=== PATIENT | female | born 1935 | race Caucasian/White ===

== ENCOUNTER → 2018-02-03 10:15 | Outpatient (CLI) | payer OTHER, MEDICARE, SELFPAY ==
--- NOTE | 2018-02-03 10:56 | EKG12_ITS ---
Test Reason : PRE-OP Blood Pressure : / mmHG Vent. Rate : 066 BPM Atrial Rate : 066 BPM P-R Int : 202 ms QRS Dur : 134 ms QT Int : 450 ms P-R-T Axes : 061 -51 143 degrees QTc Int : 471 ms Normal sinus rhythm Possible Left atrial enlargement Left axis deviation Left bundle branch block Abnormal ECG Confirmed by LUIS E PATTERSON, LORRIE ([id number]), senior technical editor MARLY WYATT ([id number]) on 02/04/2018 12:54:00 PM Referred By: Sera Iqbal Confirmed By:LORRIE KIMBROUGH MD
[2018-02-03 11:45] LABS: Absolute Lymphocyte Count 1.29 X10^3/ul (0.83-4.51); Absolute Neutrophil Count 3.2 X10^3/uL (2.0-7.7); Basophil# 0.04 X10^3/uL; Basophil% 0.7 % (0-1); Eosinophil# 0.22 X10^3/uL; Hematocrit 42.2 % (37-47); Hemoglobin 13.8 g/dl (12.0-15.0); Lymphocyte # 1.29 X10^3/ul (4.0); Lymphocyte % 23.3 % (19-41); Mean Corp Hgb Conc 32.7 g/gl (32-36); Mean Corpuscular Hgb 30.8 pg (27.0-32.0); Mean Corpuscular Volume 94.2 fL (81-99); Mean Platelet Vol. 11.3 fl (6.2-12.0); Monocyte# 0.73 X10^3/uL; Monocyte% 13.2 % (0-10); Neutrophil # 3.24 X10^3/uL (2.7-7.7); Neutrophil % 58.6 % (47-70); Platelet Count 219 K/mm3 (150-450); RBC Distribution Width CV 14.9 % (11.6-14.6); RBC Distribution Width SD 50.2 fl (35.1-43.9); Red Blood Count 4.48 M/mm3 (4.2-5.4); White Blood Count 5.5 K/mm3 (4.4-11.0)
[2018-02-03 11:46] LABS: POSITIVE COUNT NO; POSITIVE DIFFERENTIAL NO; POSITIVE MORPHOLOGY NO
[2018-02-03 12:10] LABS: AST(SGOT) 22 U/L (15-37); Alanine Aminotransfer ALT/SGPT 26 U/L (13-56); Albumin, Serum 3.7 g/dL (3.2-5.0); Alkaline Phosphatase 63 U/L (45-117); Anion Gap 7 (5-15); BUN 21 mg/dL (7-18); BUN/Creat Ratio 25.5 RATIO (10-20); Bilirubin, Direct 0.08 mg/dL (0.00-0.30); Chloride 106 mmol/L (98-107); Cholesterol 156 mg/dL (200); Creatinine, Serum 0.82 mg/dL (0.55-1.02); EST Glomerular Filtration Rate 71 mL/min (>60); Est Glom Filt Rate - Afr Amer 85 mL/min (>60); Globulin 3.3 g/dL (2.2-4.2); Glucose 82 mg/dL (74-106); High Density Lipoprotein 60 mg/dL; Potassium 4.8 mmol/L (3.5-5.1); Sodium Level 142 mmol/L (136-145); Triglycerides 241 mg/dL; Very Low Density Lipoprotein 48 mg/dL (5-40)
== END ==
PROVIDERS: Physician Assistant Medical; Family Provider Family Medicine; PCP Family Medicine; Visit Provider Otolaryngology Otolaryngology/Facial Plastic Surgery
DX: E78.5 Hyperlipidemia, unspecified (principal); Z79.899 Other long term (current) drug therapy
CPT/HCPCS: 36415; 80048; 80061; 80076; 85025; 93005

== ENCOUNTER 2018-02-25 06:14 | Day surgery (SDC) | payer MEDICARE, OTHER, SELFPAY ==
--- NOTE | 2018-02-25 | IMM_PTH ---
PATIENT: ELYSSA [place]AN [place] [facility] [id number] AGE/SX: 82/F ROOM: RE02/25/[address]: Dr. Tommy Wheeler MD : 1935 BED: DIS: 02/25/2018 SPEC #: [id number] RECD: 02/26/18 13:01 STATUS: PRAVEEN STEPHANIE #: [id number] DIAN: 02/25/18 00:[address]: Tommy Wheeler DEPT: IMMUNOHISTOCHEMISTRY RECD BY: Trinity Limon ENTERED: 02/26/18 13:02 SP TYPE: IMMUNO OTHR DR: Dr. Lucia Caro MD Tissues: Vocal cord, NOS Procedures: p16 (initial) KI-67 (add) PHYSICIAN & [place] [phone] SPECIMEN INFORMATION: Tissue Source: Right vocal cord biopsy Clinical Info: Dysphonia Specimen Number: [id number] CPT code: 39725, 02433 METHODOLOGY: Deparaffinized sections of prefer/formalin-fixed tissue or PAP/DQ stained slides are incubated with monoclonal/polyclonal antibodies/oligonucleotide probes. Localization is made via biotin free immunoperoxidase method. Appropriate controls are performed and reacted as expected. Results on target cell population are indicated in the following table: RESULTS: ANTIBODY / CLONE RESULT P16 (E6H4) positive, focal patchy Ki-67 (30-9) positive, focal, mild and moderate These tests were developed and their performance characteristics determined by [facility]. They may not have been cleared or approved by the U.S. Food and Drug Administration. The FDA has determined that such clearance or approval is not necessary. 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 AM:sara 02/27/18
[2018-02-25 06:43] VITALS: BP 128/81; PULSE 72; RESP 18; TEMP 36.7; O2SAT 98; BMI 24.5
--- NOTE | 2018-02-25 07:50 | VOCOB_PTH ---
PATIENT: ELYSSA ALAN LOC: [facility] [place] U#:[id number] AGE/SX: 82/F ROOM: RE02/25/[address]: Dr. Tommy Wheeler MD : 1935 BED: DIS: 02/25/2018 SPEC #: [id number] RECD: 02/25/18 09:18 STATUS: PRAVEEN BROWN #: [id number] DIAN: 02/25/18 07:[address]: Tommy Wheeler DEPT: SURGICAL PATHOLOGY RECD BY: Edd Tyler ENTERED: 02/25/18 09:18 SP TYPE: VOCAL CORD OTHR DR: Dr. 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 AM:sara 02/26/18 COMMENT Results from immunohistochemistry ([id number]) for surrogate HPV marker (p16) will be reported separately. Case has been reviewed in consultation with Dr. Adame who concurs with the above diagnosis. IDC:SJ MICROSCOPIC DESCRIPTION Slides are reviewed. GROSS DESCRIPTION Received in fixative is one container labeled with the patient's name and designated right vocal cord biopsy. The specimen consists of multiple irregular fragments of light carrillo soft tissue that in aggregate measure 1 x 0.2 x 0.1 cm. The specimen is totally submitted in one cassette. / SJ:sara 02/25/18 TC:0 CPT: 50968
--- NOTE | 2018-02-25 08:41 | PCM.OP.BLANK ---
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 After satisfactory endotracheal general anesthesia been obtained sterile drapes were applied and the patient draped in the usual sterile manner. A Dedo anterior commissure laryngoscope was introduced into the oral cavity and the epiglottis identified. The epiglottis was retracted anteriorly and the scope was fixed in the laryngeal inlet and anchored to a Santamaria stand above the patient's chest. The operating microscope with the 400 mm objective was utilized to obtain magnification The entire larynx was examined. The right true cord appeared to exhibit an exophytic leukoplakic lesion in its mid third. With microlaryngeal instruments this lesion was stripped off the vocal cord. Bleeding was controlled by packing the vocal cord with cottonoids soaked in topical epinephrine. After satisfactory hemostasis had been obtained the procedure was considered terminated and the patient extubated and returned to the recovery room in satisfactory condition. Tommy Wheeler
[2018-02-25 08:46] VITALS: BP 128/81; BP 145/70; PULSE 73; RESP 16; TEMP 36.3; O2SAT 96
[2018-02-25 09:00] VITALS: BP 128/81; BP 139/75; PULSE 65; RESP 16; O2SAT 100
[2018-02-25 09:15] VITALS: BP 128/81; BP 130/75; PULSE 63; RESP 16; TEMP 36.2; O2SAT 100
[2018-02-25 09:56] VITALS: BP 128/81
== END 2018-02-25 10:01 | disposition home or self-care (01) ==
LOC: SDC 06:18 → AC 06:19
PROVIDERS: Family Provider Family Medicine; PCP Family Medicine; Visit Provider Otolaryngology Otolaryngology/Facial Plastic Surgery
PROC: 0CJS8ZZ Inspection of Larynx, Via Natural or Artificial Opening Endoscopic (ICD-10-PCS; CPT 31575; principal; 2018-02-25 07:45)
DX: R49.0 Dysphonia (principal); J38.1 Polyp of vocal cord and larynx; F17.200 Nicotine dependence, unspecified, uncomplicated
CPT/HCPCS: 00320; 31541; 88305; 88341; 88342; J7120; J2405

== ENCOUNTER → 2018-10-14 10:37 | Outpatient (CLI) | payer MEDICARE, OTHER, SELFPAY ==
[2018-10-14 13:07] LABS: AST(SGOT) 20 U/L (15-37); Alanine Aminotransfer ALT/SGPT 23 U/L (13-56); Anion Gap 8 (5-15); BUN 15 mg/dL (7-18); BUN/Creat Ratio 16.9 RATIO (10-20); Calcium,Total 8.8 mg/dL (8.5-10.1); Chloride 106 mmol/L (98-107); Cholesterol 142 mg/dL (200); Creatinine, Serum 0.88 mg/dL (0.55-1.02); EST Glomerular Filtration Rate 65 mL/min (>60); Est Glom Filt Rate - Afr Amer 78 mL/min (>60); Glucose 82 mg/dL (74-106); High Density Lipoprotein 60 mg/dL; Potassium 4.4 mmol/L (3.5-5.1); Sodium Level 141 mmol/L (136-145); Triglycerides 177 mg/dL; Very Low Density Lipoprotein 35 mg/dL (5-40)
== END ==
PROVIDERS: Family Provider Family Medicine; PCP Family Medicine; Visit Provider Family Medicine
DX: E78.00 Pure hypercholesterolemia, unspecified (principal); I45.4 Nonspecific intraventricular block
CPT/HCPCS: 36415; 80048; 80061; 84450; 84460

== ENCOUNTER → 2019-04-14 09:50 | Outpatient (CLI) | payer MEDICARE, OTHER, SELFPAY ==
[2019-02-03 13:37] VITALS: BMI 25.5
[2019-04-14 10:53] LABS: AST(SGOT) 22 U/L (15-37); Alanine Aminotransfer ALT/SGPT 25 U/L (13-56); Albumin, Serum 3.6 g/dL (3.2-5.0); Alkaline Phosphatase 65 U/L (45-117); Bilirubin, Direct 0.12 mg/dL (0.00-0.30); Cholesterol 136 mg/dL (200); Globulin 3.3 g/dL (2.2-4.2); High Density Lipoprotein 57 mg/dL; Protein, Total 6.9 g/dL (6.4-8.2); Triglycerides 202 mg/dL; Very Low Density Lipoprotein 40 mg/dL (5-40)
== END ==
PROVIDERS: Family Provider Family Medicine; PCP Family Medicine; Referring Provider Internal Medicine Cardiovascular Disease; Visit Provider Internal Medicine Cardiovascular Disease
DX: E78.5 Hyperlipidemia, unspecified (principal)
CPT/HCPCS: 36415; 80061; 80076

== ENCOUNTER → 2019-11-30 15:57 | Outpatient (CLI) | payer MEDICARE, OTHER, SELFPAY ==
[2019-02-03 13:37] VITALS: BMI 25.5
[2019-11-30 17:33] LABS: Absolute Neutrophil Count 3.9 X10^3/uL (2.0-7.7); Basophil# 0.02 X10^3/uL; Basophil% 0.3 % (0-1); Eosinophil# 0.14 X10^3/uL; Eosinophils% 2.1 % (0-5); Hematocrit 42.7 % (37-47); Hemoglobin 13.9 g/dL (12.0-15.0); Lymphocyte % 25.7 % (19-41); Mean Corp Hgb Conc 32.6 g/dL (32-36); Mean Corpuscular Hgb 30.9 pg (27.0-32.0); Mean Corpuscular Volume 94.9 fL (81-99); Mean Platelet Vol. 11.1 fl (6.2-12.0); Monocyte# 0.87 X10^3/uL; Monocyte% 13.2 % (0-10); NRBC Flagged by Analyzer 0 % (0-5); Neutrophil # 3.87 X10^3/uL (2.7-7.7); Neutrophil % 58.5 % (47-70); POSITIVE MORPHOLOGY YES; Platelet Count 217 K/mm3 (150-450); RBC Distribution Width CV 13.9 % (11.6-14.6); RBC Distribution Width SD 48.4 fl (35.1-43.9); White Blood Count 6.6 K/mm3 (4.4-11.0)
[2019-11-30 17:36] LABS: Differential Indicated SCAN CRITERIA MET
[2019-11-30 18:36] LABS: Anisocytosis RARE; Macrocytosis RARE; Platelet Estimate ADEQUATE (ADEQ); Red Cell Morphology N CHROM NORMAL (NORM C&C)
[2019-12-02 20:22] LABS: Lead, Blood Adult 16+yrs 1 ug/dL (0-4)
== END ==
PROVIDERS: PCP Family Medicine; Visit Provider Family Medicine
DX: Z77.011 Contact with and (suspected) exposure to lead (principal)
CPT/HCPCS: 36415; 83655; 85025

== ENCOUNTER → 2020-01-14 10:48 | Outpatient (CLI) | payer MEDICARE, OTHER, SELFPAY ==
[2019-02-03 13:37] VITALS: BMI 25.5
[2020-01-14 11:51] LABS: AST(SGOT) 20 U/L (15-37); Alanine Aminotransfer ALT/SGPT 26 U/L (13-56); Albumin, Serum 3.7 g/dL (3.2-5.0); Alkaline Phosphatase 64 U/L (45-117); Bilirubin, Direct 0.12 mg/dL (0.00-0.30); Cholesterol 138 mg/dL (200); Globulin 3.3 g/dL (2.2-4.2); High Density Lipoprotein 59 mg/dL; Triglycerides 253 mg/dL; Very Low Density Lipoprotein 51 mg/dL (5-40)
== END ==
PROVIDERS: PCP Family Medicine; Referring Provider Internal Medicine Cardiovascular Disease; Visit Provider Internal Medicine Cardiovascular Disease
DX: E78.5 Hyperlipidemia, unspecified (principal)
CPT/HCPCS: 36415; 80061; 80076

== ENCOUNTER → 2020-11-10 13:28 | Outpatient (CLI) | payer MEDICARE, OTHER, SELFPAY ==
[2019-02-03 13:37] VITALS: BMI 25.5
--- NOTE | 2020-11-10 13:35 | RAD_ITS ---
HISTORY: Hip pain. Mainly in the left hip. AP pelvis and 2 views of the right hip 2 views left hip. No previous x-rays. Findings: Bilateral femoral acetabular osteoarthritis is manifested by loss of joint space, cortical sclerosis, and osteophytes. Disease is slightly more severe on the left than the right. Enthesophytes are present about the pelvis. Levoscoliosis within the lumbar spine. Degenerative disc disease. Facet arthropathy. Pelvic phleboliths. Bowel gas pattern is normal. No fractures are perceived. No dislocation. RAD/Hips B/L min 2 views w/ Pelvis IMPRESSION: Bilateral hip arthritis left greater than right at 0102 Reported and signed by: Jarred Murphy MD Electronically Signed: Jarred Murphy MD at 1:01 EST Tel , Service support ,
== END ==
PROVIDERS: PCP Family Medicine; Referring Provider Family Medicine; Visit Provider Family Medicine
DX: M25.552 Pain in left hip (principal)
CPT/HCPCS: 73521

== ENCOUNTER 2020-12-08 14:38 | Outpatient (RCR) | payer MEDICARE, OTHER, SELFPAY ==
[2019-02-03 13:37] VITALS: BMI 25.5
== END 2020-12-08 23:59 ==
LOC: IMMUN 14:38
PROVIDERS: PCP Family Medicine; Visit Provider Family Medicine
DX: Z23 Encounter for immunization (principal)
CPT/HCPCS: 0011A; 0012A; 91301

== ENCOUNTER → 2020-12-15 11:08 | Outpatient (CLI) | payer MEDICARE, OTHER, SELFPAY ==
[2019-02-03 13:37] VITALS: BMI 25.5
[2020-12-15 12:46] LABS: AST(SGOT) 18 U/L (15-37); Alanine Aminotransfer ALT/SGPT 24 U/L (13-56); Albumin, Serum 3.6 g/dL (3.2-5.0); Alkaline Phosphatase 63 U/L (45-117); Bilirubin, Direct 0.12 mg/dL (0.00-0.30); Cholesterol 139 mg/dL (200); Globulin 3.3 g/dL (2.2-4.2); High Density Lipoprotein 58 mg/dL; Protein, Total 6.9 g/dL (6.4-8.2); Triglycerides 178 mg/dL; Very Low Density Lipoprotein 36 mg/dL (5-40)
== END ==
PROVIDERS: PCP Family Medicine; Referring Provider Internal Medicine Cardiovascular Disease; Visit Provider Internal Medicine Cardiovascular Disease
DX: E78.5 Hyperlipidemia, unspecified (principal)
CPT/HCPCS: 36415; 80061; 80076

== ENCOUNTER → 2021-01-04 12:55 | Outpatient (CLI) | payer MEDICARE, OTHER, SELFPAY ==
[2020-12-23 12:45] VITALS: BMI 24.3
== END ==
PROVIDERS: PCP Family Medicine; Referring Provider Internal Medicine Cardiovascular Disease; Visit Provider Internal Medicine Cardiovascular Disease
DX: Z01.810 Encounter for preprocedural cardiovascular examination (principal)
CPT/HCPCS: 93306

== ENCOUNTER → 2021-04-07 12:14 | Outpatient (CLI) | payer MEDICARE, OTHER, SELFPAY ==
[2020-12-23 12:45] VITALS: BMI 24.3
[2021-04-07 15:22] LABS: Absolute Lymphocyte Count 1.21 X10^3/uL (0.83-4.51); Absolute Neutrophil Count 3.9 X10^3/uL (2.0-7.7); Basophil# 0.03 X10^3/uL; Basophil% 0.5 % (0-1); Eosinophil# 0.19 X10^3/uL; Eosinophils% 3.2 % (0-5); Hematocrit 40.1 % (37-47); Lymphocyte # 1.21 X10^3/ul (0.83-4.51); Lymphocyte % 20.4 % (19-41); Mean Corp Hgb Conc 32.4 g/dL (32-36); Mean Corpuscular Volume 95.5 fL (81-99); Mean Platelet Vol. 11.4 fl (6.2-12.0); Monocyte# 0.63 X10^3/uL; Monocyte% 10.6 % (0-10); NRBC Flagged by Analyzer 0 % (0-5); Neutrophil # 3.86 X10^3/uL (2.7-7.7); Neutrophil % 65.1 % (47-70); Platelet Count 219 K/mm3 (150-450); RBC Distribution Width CV 13.9 % (11.6-14.6); White Blood Count 5.9 K/mm3 (4.4-11.0)
== END ==
PROVIDERS: PCP Family Medicine; Referring Provider Family Medicine; Visit Provider Family Medicine
DX: E78.5 Hyperlipidemia, unspecified (principal)
CPT/HCPCS: 36415; 84443; 85025

== ENCOUNTER 2021-04-25 12:30 | Outpatient (RCR) | payer MEDICARE, OTHER, SELFPAY ==
[2020-12-23 12:45] VITALS: BMI 24.3
--- NOTE | 2021-03-23 14:27 | HP.PTEVAL ---
Patient's Visit Information ELYSSA ALAN is a 85 year old F referred to Physical Therapy by Dr. Lucia Caro MD with a diagnosis of L SHOULDER STRAIN. Date of Evaluation: 03/23/21 Physical Therapist: Jenny Yoder PT, Cert MDT - Visit Plan Frequency: 2x /Week Duration: 4-6 Weeks Plan: L SHLD ULTRASOUND, POSTURE CORRECTION/STRENGTHENING, INSTRUCTION IN APPROPRIATE BODY MECHANICS AND ACTIVITY MODIFICATIONS. [facility] UE ROM, STRETCHING AND STRENGTHENING. HEP INSTRUCTION. - Subjective Work/Leisure: RETIRED. PATIENT REPROTS SHE HAS 3 PROPERTIES SHE TAKES CARE OF. Present symptoms: LEFT SHOULDER PAIN. L UPPER ARM AND UPPER TRAP AREA TINGLING. PATIENT IS RIGHT HAND DOMINANT. Present since: ABOUT A YEAR OR MORE AGO. Pain Scale: Worst - 5/10 Least - /. Currently: 11/20. Commenced as a result of: NO APPARENT REASON BUT REPORTS SHE HAS BEEN DOING A LOT OF RAKING. Symptoms at onset: LEFT SHOULDER. Worse: LIFTING L ARM FORWARD WITH ELBOW BENT. PUTTING ON A SHIRT OR JACKET. Better: JUST NOT LIFT ARM WITH ELBOW BENT ABOVE. Disturbed sleep: YES BUT PATIENT REPORTS NOT DUE TO SHLD PAIN THAT SHE KNOWS OF. Previous history/Previous treatment: REPORTS SHE HAS SEEN A CHIROPRACTOR FOR YEARS FOR HER NECK. PATIENT REPORTS THAT SOMETIMES WHEN SHE LIES ON HER BACK IN BED SHE GETS LEFT NECK/SHOULDER TINGLING THAT GOES AWAY WHEN SHE TURNS HER HEAD TO THE RIGHT. NO NECK SURGERY. NO NECK OR SHLD INJECTIONS. 25 YEARS OR SO AGO PATIENT HAD L FROZEN SHOULDER THAT GOT BETTER WITH THERAPY. This episode: PT CONSULT. Dizziness: NO. 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 Nausea: NO. Shortness of Breath: NO. Difficulty Swollowing: NO. Gait: NORMAL. Accidents: NO. Unexplained weight loss: NO. Imaging: NO SHLD X-RAYS. PMH/Recent major surgery: SEEING A UROLOGIST. L BUNDLE BRANCH BLOCK. HIP ARTHRITIS. NEUROPATHY. OTHER: PATIENT WANTS TO REPORT THAT SHE GOT REDNESS ON HER CHEST NEAR HER L SHLD AFTER HAVING THE COVID VACCINE. - Objective Sitting Posture/Standing Posture: POOR. FH. RS'S. Active Correction of posture: NE. Other Observations: INDEP GAIT AND TRANSFERS. Motor deficit: L SHLD FLEX WITH ELBOW EXT 4/5, ABD WITH ELBOW EXT 4-/5, FLEX AND ABD WITH ELBOW FLEX 3-/5, IR 4/5, ER 4/5. RIGHT UE WFL. Sensory deficit: [facility] UE LIGHT TOUCH SENSATION GROSSLY INTACT AND SYMMETRICAL. ROM deficit: L SHLD FLEX AND ABD LIMITED TO 90 DEG ACTIVELY AND PASSIVELY WITH ELBOW BENT TO APPROX 90 DEG AND PAINFUL. Reflexes: [facility] UE DTR'S 2/3. Dural Signs: NEGATIVE. Cervical Mvmt Loss: Flex: MIN. Pro: NIL. Ext: MOD. Ret: OG. RSB: OG. LSB: OG. R Rot: OG. L Rot: OG. Postural strength: POOR. TREATMENT: THER ACT - INSTRUCTION IN APPROPRIATE ACTIVITY MODIFICATIONS AND INST IN L UE WALL SLIDES IN PAINFREE ROM TO MAINTAIN ROM AND HELP AVOID PATIENT DEVELOPING A FROZEN SHOULDER WHILE NOT USING L UE NORMALLY DUE TO PAIN AND DYSFUNCTION. - Goals Goal 1:: DECREASE C/O LEFT SHLD PAIN Goal Time Frame: 4-6 Weeks Goal 2:: IMPROVE LEFT SHLD REACHING, LIFTING, RAKING AND ADL (PUTTING COAT AND SHIRTS ON) FUNCTION Goal Time Frame: 4-6 Weeks Goal 3:: INSTRUCT IN PROPHYLAXIS Goal Time Frame: 4-6 Weeks - Anticipated Interventions Patient/Client Instruction: Educate patient on: Condition, Plan of Care, Risk Factors For the Purpose of:: To improve self management Therapeutic Exercise to Include: Strength training, Body mechanics, Postural training, Flexibilty training, Neuromotor development, Scapular Strength/Stabilization For the Purpose of:: To decrease pain, To increase ROM, To improve muscle performance and motor function, To increase tolerance to activity/condition/position, To improve ability of physical actions for home/community/work/leisure Cryotherapy (ice pack, ice massage): Yes Thermo therapy (hot pack): Yes Ultrasound (thermal/non thermal): Yes For the Purpose of:: To decrease pain, To decrease swelling/inflammation, To improve nutrient delivery to tissue Thank you for the opportunity to evaluate your patient. For Medicare and Medicare HMO plans, please review the plan of care and approve it. It will need to be FAXED BACK to us at [phone] for Medicare purposes. For Medicare only, by signing this I certify the plan of care. Please let me know if there are questions or concerns regarding this plan of care. Physician Signature: Date:
--- NOTE | 2021-04-25 13:03 | HP.PTDCSUM_ITS ---
It has been my pleasure to treat ELYSSA ALAN referred by Dr. Lucia Caro MD, with the diagnosis of L SHOULDER STRAIN for a total of 8 visit(s). Discharge Date: 04/25/21 Please see the following information for a summary of their discharge status. Subjective: PATIENT REPORTS SHE IS DOING GOOD. SHE DOES REPORT THOUGH THAT IT HURTS TO LAY ON HER RIGHT SHLD TO DO THE SLEEPER STRETCH SO SHE STOPPED. SHE REPORTS IT IS BETTER FOR HER BACK AND HIPS TO LAY ON HER BACK. LONG SHE DOESN'T LAY ON HER L SIDE SHE DOESN'T HAVE SHOULDER PAIN. L SHOULDER Pain Intensity (Out of 10): 4 % Improvement: 99 Objective/Function: PATIENT WAS SEEN TODAY FOR RE-ASSESSMENT OF PROGRESS TOWARD THE SET PT GOALS AND THE NEED FOR FURTHER PHYSICAL THERAPY VS READINESS FOR DISCHARGE. ALL PT GOALS HAVE BEEN MET AND PATIIENT IS APPROPRIATE FOR DISCHARGE TO [facility]. SHE IS AGREEABLE. UPON EXAM TODAY SHE DEMO'S L SHLD ROM AND STRENGTH WITHIN FUNCTIONAL LIMITS WITHOUT PAIN. WE TESTED WAND EXTENSION AND BEHIND THE BACK SELF STRETCHING INTO INTERNAL ROTATION TODAY TO SUBSTITUTE FOR THE SLEEPER STRETCH BUT PATIENT HAD FULL MOTION WITHOUT PAIN. Goal 1:: DECREASE C/O LEFT SHLD PAIN Goal Progress: Goal Met Goal 2:: IMPROVE LEFT SHLD REACHING, LIFTING, RAKING AND ADL (PUTTING COAT AND SHIRTS ON) FUNCTION Goal Progress: Goal Met Goal 3:: INSTRUCT IN PROPHYLAXIS Goal Progress: Goal Met Plan: D/C TO [facility]. PATIENT AGREEABLE. If there are questions or concerns regarding this patient's physical therapy, please feel free to call me at [phone]. Thank you for the referral of this patient. Sincerely, Jenny Yoder, PT, Cert MDT
== END 2021-04-25 19:00 | disposition home or self-care (01) ==
LOC: PT 12:30
PROVIDERS: PCP Family Medicine; Referring Provider Family Medicine; Visit Provider Family Medicine
DX: S46.912D Strain of unspecified muscle, fascia and tendon at shoulder and upper arm level, left arm, subsequent encounter (principal)
CPT/HCPCS: 97035; 97110; 97112; 97162; 97164; 97530

== ENCOUNTER → 2021-05-30 14:20 | Outpatient (CLI) | payer MEDICARE, OTHER, SELFPAY ==
[2020-12-23 12:45] VITALS: BMI 24.3
--- NOTE | 2021-05-30 14:28 | RAD_ITS ---
STUDY: X-RAY CHEST REASON FOR EXAM: Female, 86 years old. COUGH TECHNIQUE: PA and lateral views of the chest. COMPARISON: None. FINDINGS: There is hyperinflation of the lungs consistent with chronic obstructive lung disease (COPD). There is no demonstrated pleural abnormality. Normal size heart. Normal mediastinum and lashay. Normal visualized pulmonary arteries. There is atherosclerotic calcification of the aortic arch with tortuosity. There are diffuse degenerative changes of the visualized thoracic spine. Normal visualized ribs, clavicles, and shoulders. Pectus excavatum deformity. There is no demonstrated abnormality of the visualized soft tissue structures of the upper abdomen. RAD/Chest PA and Lateral IMPRESSION: Hyperinflation. Pectus excavatum deformity. Electronically Signed: Mark Chavez MD at 9:06 EDT , Service support ,
== END ==
PROVIDERS: PCP Family Medicine; Referring Provider Otolaryngology; Visit Provider Otolaryngology
DX: R05 Cough (principal)
CPT/HCPCS: 71046

== ENCOUNTER → 2021-07-14 14:25 | Outpatient (CLI) | payer MEDICARE, OTHER, SELFPAY ==
[2021-07-14 16:44] LABS: Anion Gap 4 (5-15); BUN 18 mg/dL (7-18); BUN/Creat Ratio 23.2 RATIO (10-20); Calcium,Total 9.3 mg/dL (8.5-10.1); Chloride 106 mmol/L (98-107); Creatinine, Serum 0.78 mg/dL (0.55-1.02); EST Glomerular Filtration Rate 75 mL/min (>60); Est Glom Filt Rate - Afr Amer 91 mL/min (>60); Glucose 83 mg/dL (74-106); Potassium 4.1 mmol/L (3.5-5.1); Sodium Level 140 mmol/L (136-145)
== END ==
PROVIDERS: PCP Family Medicine; Referring Provider Nurse Practitioner Family; Visit Provider Nurse Practitioner Family
DX: I44.7 Left bundle-branch block, unspecified (principal); R06.02 Shortness of breath
CPT/HCPCS: 36415; 80048; 83880

== ENCOUNTER 2022-02-08 09:44 | Outpatient (CLI) | payer MEDICARE, OTHER, SELFPAY ==
[2022-02-08 11:23] LABS: AST(SGOT) 17 U/L (15-37); Alanine Aminotransfer ALT/SGPT 22 U/L (13-56); Albumin, Serum 3.7 g/dL (3.2-5.0); Alkaline Phosphatase 67 U/L (45-117); Bilirubin, Direct 0.14 mg/dL (0.00-0.30); Cholesterol 141 mg/dL (200); Globulin 3.3 g/dL (2.2-4.2); High Density Lipoprotein 57 mg/dL; Triglycerides 186 mg/dL; Very Low Density Lipoprotein 37 mg/dL (5-40)
== END 2022-02-08 23:59 | disposition home or self-care (01) ==
PROVIDERS: PCP Family Medicine; Visit Provider Nurse Practitioner Gerontology
DX: E78.5 Hyperlipidemia, unspecified (principal)
CPT/HCPCS: 36415; 80061; 80076

== ENCOUNTER → 2022-05-25 | Outpatient (CLI) | payer MEDICARE, OTHER, SELFPAY ==
[2022-05-31 12:37] LABS: Arsenic 7245 < 1 ug/L (0-9); Mercury, Blood 85324 < 1.0 ug/L (0.0-14.9)
== END | disposition home or self-care (01) ==
LOC: LAB 14:00
PROVIDERS: PCP Family Medicine; Referring Provider Family Medicine; Visit Provider Family Medicine
DX: G62.9 Polyneuropathy, unspecified (principal)
CPT/HCPCS: 36415; 83018; 83825

== ENCOUNTER → 2022-06-15 | Outpatient (CLI) | payer MEDICARE, OTHER, SELFPAY | END | disposition home or self-care (01) | LOC: MFPLAB 15:00 | PROVIDERS: PCP Family Medicine; Referring Provider Family Medicine; Visit Provider Family Medicine | DX: Z00.00 Encounter for general adult medical examination without abnormal findings (principal) ==

== ENCOUNTER → 2022-08-09 | Outpatient (CLI) | payer MEDICARE, OTHER, SELFPAY ==
[2022-08-09 13:07] LABS: AST(SGOT) 16 U/L (15-37); Alanine Aminotransfer ALT/SGPT 19 U/L (13-56); Albumin, Serum 3.5 g/dL (3.2-5.0); Alkaline Phosphatase 64 U/L (45-117); Bilirubin, Direct 0.12 mg/dL (0.00-0.30); Cholesterol 138 mg/dL (200); Globulin 3.3 g/dL (2.2-4.2); High Density Lipoprotein 56 mg/dL; Protein, Total 6.8 g/dL (6.4-8.2); Triglycerides 187 mg/dL; Very Low Density Lipoprotein 37 mg/dL (5-40)
== END | disposition home or self-care (01) ==
PROVIDERS: PCP Family Medicine; Referring Provider Nurse Practitioner Gerontology; Visit Provider Nurse Practitioner Gerontology
DX: E78.00 Pure hypercholesterolemia, unspecified (principal); E78.5 Hyperlipidemia, unspecified
CPT/HCPCS: 36415; 80061; 80076

== ENCOUNTER 2022-10-29 09:58 | Day surgery (SDC) | payer MEDICARE, OTHER, SELFPAY ==
--- NOTE | 2022-10-25 12:35 | EKG12_ITS ---
Test Reason : PREOP Blood Pressure : / mmHG Vent. Rate : 069 BPM Atrial Rate : 069 BPM P-R Int : 204 ms QRS Dur : 136 ms QT Int : 436 ms P-R-T Axes : 061 -51 134 degrees QTc Int : 467 ms Sinus rhythm with occasional Premature ventricular complexes Left axis deviation Left bundle branch block Abnormal ECG Confirmed by HEATH PATTERSON, JEN ([id number]), sound editor SALMA RUIZ ([id number]) on 10/26/2022 10:37:34 AM Referred By: Freddie Wheeler Confirmed By:ALYCE JOE MD
[2022-10-25 13:34] LABS: Hematocrit 41.9 % (37-47); Hemoglobin 14.1 g/dL (12.0-15.0); Mean Corp Hgb Conc 33.7 g/dL (32-36); Mean Corpuscular Hgb 31.8 pg (27.0-32.0); Mean Corpuscular Volume 94.4 fL (81-99); Platelet Count 190 K/mm3 (150-450); RBC Distribution Width CV 13.9 % (11.6-14.6); RBC Distribution Width SD 48.4 fl (35.1-43.9); Red Blood Count 4.44 M/mm3 (4.2-5.4); White Blood Count 7.3 K/mm3 (4.4-11.0)
[2022-10-25 13:53] LABS: Anion Gap 2 (5-15); BUN 16 mg/dL (7-18); Calcium,Total 9.3 mg/dL (8.5-10.1); Chloride 108 mmol/L (98-107); Creatinine, Serum 0.76 mg/dL (0.55-1.02); EST Glomerular Filtration Rate 76 mL/min (>60); Est Glom Filt Rate - Afr Amer 92 mL/min (>60); Glucose 95 mg/dL (74-106); Potassium 4.2 mmol/L (3.5-5.1); Sodium Level 139 mmol/L (136-145)
--- NOTE | 2022-10-29 | IMM_PTH ---
PATIENT: ELYSSA ALAN [place] [facility] [place][id number] AGE/SX: 87/F ROOM: RE10/29/[address]: Dr. Freddie Wheeler MD : 1935 BED: DIS: 10/29/2022 SPEC #: [id number] RECD: 10/30/22 12:36 STATUS: PRAVEEN REQ #: [id number] DIAN: 10/29/22 00:[address]: Freddie Wheeler DEPT: IMMUNOHISTOCHEMISTRY RECD BY: Trinity Limon ENTERED: 10/30/22 12:36 SP TYPE: IMMUNO OTHR DR: Dr. 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 Localization is made via biotin free immunoperoxidase method. Appropriate controls are performed and reacted as expected. Results on target cell population are indicated in the following table: RESULTS: ANTIBODY / CLONE RESULT P16 (E6H4) positive, focal, patchy Ki-67 (30-9) positive, low These tests were developed and their performance characteristics determined by [facility]. They may not have been cleared or approved by the U.S. Food and Drug Administration. The FDA has determined that such clearance or approval is not necessary. The above immunohistochemical/dualISH markers are ordered and reviewed by the Pathologist. INTERPRETATION: Right true vocal cord, stripping: Mild and moderate squamous dysplasia. AM:sara 10/31/2022
[2022-10-29 10:34] VITALS: BP 150/71; PULSE 71; RESP 18; TEMP 36.1; O2SAT 100; BMI 24.5
[2022-10-29] MEDS: Lactated Ringers 1,000 ML 15 ML IV (10:45)
--- NOTE | 2022-10-29 11:11 | PCM.DC.SUM ---
Providers Primary Care Physician: Dr. Lucia Caro MD Reason For Visit: MICRO DIRECT LARYNGOSCOPY W BIOPSY Medications at Discharge Home Medications magnesium 250 mg tablet 250 mg PO MOWEFR 02/04/18 alfalfa 250 mg tablet 250 mg PO QDAY 02/06/18 flaxseed oil 1,000 mg capsule 1,000 mg PO QDAY 02/06/18 omega-3 fatty acids 1,000 mg capsule 1,000 mg PO QDAY 02/06/18 ibuprofen 200 mg capsule 200 mg PO Q6H PRN Pain 12/28/21 carvedilol 6.25 mg tablet 6.25 mg PO BID #180 tabs 02/27/22 Weight / BMI Weight Weight: 71 kg Body Mass Index (BMI) 24.5 ABG / Lab / Microbiology Data Result Diagrams: 10/25/22 12:57 10/25/22 12:57 D/C Instructions Discharge Diet: No restrictions Discharge Activity: Return to Normal Activity Additional Instructions: Voice rest for 3 days Please Follow Up With: Freddie Wheeler MD When: 2 weeks Meaningful Use Info Meaningful Use Diagnoses (Choose all that apply): None applicable Discharge Plan Admission Attending Provider: Freddie Wheeler Primary Care Provider: Lucia Caro Discharge Orders/Prescriptions Prescriptions: No Action magnesium 250 mg tablet 250 mg PO MOWEFR Label Comments: 250MG PO .3 X a week Rx Instructions: 250MG PO .3 X a week flaxseed oil 1,000 mg capsule 1,000 mg PO QDAY omega-3 fatty acids 1,000 mg capsule 1,000 mg PO QDAY alfalfa 250 mg tablet 250 mg PO QDAY ibuprofen 200 mg capsule 200 mg PO Q6H PRN (Reason: Pain) carvedilol 6.25 mg tablet 6.25 mg PO BID Qty: 180 3RF Referrals / Follow Up: Lucia Caro MD [Primary Care Provider] - Disposition Disposition (needs filled in before D/C Order can be placed): Home, Self Care
[2022-10-29] MEDS: Epinephrine (1 mg/ml) 1 MG/ML VIAL ×2 (11:24)
--- NOTE | 2022-10-29 11:38 | OP.PCM_ITS ---
Report of Operation Date of Procedure: 10/29/22 Pre-Operative Diagnosis: right vocal cord neoplasm Post-Operative Diagnosis: same Surgery/Procedure Performed:: Microdirect laryngoscopy with stripping of the right cord Surgeon: Freddie Wheeler Type of Anesthesia: General Anesthesiologist: Bassam Castorena Estimated Blood Loss (mL): minimal Description of Procedure: The patient was taken to the operating room on 10/29/2022. She was placed in the supine position on the operating table. She was given sufficient general endotracheal anesthesia. The table was turned 90 degrees in a clockwise fashion. The patient was draped in sterile. A gum guard was placed on the upper gingiva. A Dedo laryngoscope was inserted in the patient's mouth and then advanced into the oropharynx. The epiglottis and vallecula were normal. The larynx was exposed. She was then placed in [place] suspension on the [place] stand. The operating microscope was used at this point. The right vocal cord was abnormal. There appeared to be a neoplasm involving the entire vocal cord from the vocal process to just posterior to the anterior commissure only on the right side. I elected to excise this. I made an incision posteriorly and superiorly with a scissors. The mucosa was grasped and the right vocal cord was stripped using sharp dissection with the scissors. The dissection was brought anteriorly until the entire lesion was excised. Absolute hemostasis was achieved with adrenaline pledgets. Once hemostasis was achieved all instrumentation was removed. The patient was then awoken and brought to recovery room in stable condition. Blood loss minimal, replacement none. Sponge, needle, and instrument count were correct at the end of the procedure.
--- NOTE | 2022-10-29 11:45 | VOCOB_PTH ---
PATIENT: ELYSSA ALAN LOC: [facility] [place] U#:[id number] AGE/SX: 87/F ROOM: RE10/29/[address]: Dr. Freddie Wheeler MD : 1935 BED: DIS: 10/29/2022 SPEC #: [id number] RECD: 10/29/22 14:17 STATUS: PRAVEEN REQasim #: [id number] DIAN: 10/29/22 11:[address]: Freddie Wheeler DEPT: SURGICAL PATHOLOGY RECD BY: Shirley Sandoval ENTERED: 10/29/22 15:15 SP TYPE: VOCAL CORD OTHR DR: Dr. 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 See comment. AM:sara 10/30/2022 COMMENT Results from immunohistochemistry ([id number]) for surrogate HPV marker (p16) will be reported separately. Case has been reviewed in consultation with Dr. Adame who concurs with the above diagnosis. IDC:ANISHA MICROSCOPIC DESCRIPTION Slides are reviewed. GROSS DESCRIPTION Received in fixative is one container labeled with the patient's name and designated right true vocal cord stripping. The specimen consists of a piece of carrillo mucosal tissue measuring 0.5 x 0.5 x 0.1 cm. The specimen is bisected and submitted entirely in one cassette. / SJ:sara 10/29/2022 TC:0 CPT: 16662
[2022-10-29 11:49] VITALS: BP 147/72; BP 150/71; PULSE 66; RESP 16; TEMP 36.1; O2SAT 97
[2022-10-29 12:00] VITALS: BP 135/71; BP 150/71; PULSE 63; RESP 16; O2SAT 96
[2022-10-29 12:15] VITALS: BP 137/71; BP 150/71; PULSE 60; RESP 16; O2SAT 99
[2022-10-29 12:25] VITALS: BP 141/73; BP 150/71; PULSE 60; RESP 16; TEMP 36.1; O2SAT 100
[2022-10-29] MEDS: Acetaminophen 650 MG/20 ML UDC PO (13:05)
[2022-10-29 13:47] VITALS: BP 150/71; BP 159/75; PULSE 72; RESP 16; TEMP 37.2; O2SAT 99
== END 2022-10-29 13:55 | disposition home or self-care (01) ==
LOC: SDC 11:12 → AC 12:05
PROVIDERS: PCP Family Medicine; Referring Provider Otolaryngology; Visit Provider Otolaryngology
PROC: 0CJS8ZZ Inspection of Larynx, Via Natural or Artificial Opening Endoscopic (ICD-10-PCS; CPT 31575; principal; 2022-10-29 11:40)
DX: J38.1 Polyp of vocal cord and larynx (principal); E78.5 Hyperlipidemia, unspecified; I44.7 Left bundle-branch block, unspecified
CPT/HCPCS: 31541; 36415; 80048; 85027; 88305; 88341; 88342; 93005; J7120; J2405

== ENCOUNTER → 2023-07-30 | Outpatient (CLI) | payer MEDICARE, OTHER, SELFPAY ==
--- NOTE | 2023-07-30 17:06 | RAD_ITS ---
INDICATION: cough EXAMINATION/TECHNIQUE: X-RAY - XR Chest 2 Views COMPARISON: 05/30/2021 FINDINGS: LINES/DEVICES: None. LUNGS: No consolidation. Reticular opacity in the right lung likely scarring and unchanged. Blunting of the left costophrenic angle unchanged likely pleural thickening. No pneumothorax. MEDIASTINUM: Aorta is atherosclerotic. CARDIAC SILHOUETTE: Not enlarged. BONES AND SOFT TISSUES: Degenerative changes in the dorsal spine. Mild pectus excavatum deformity. RAD/Chest PA and Lateral IMPRESSION: No evidence of active intrathoracic disease. Electronically Signed: Fide Garcias MD at 3:56 EDT ,
== END | disposition home or self-care (01) ==
LOC: MTRAD 17:06
PROVIDERS: PCP Family Medicine; Referring Provider Family Medicine; Visit Provider Family Medicine
DX: R05.9 Cough, unspecified (principal)
CPT/HCPCS: 71046

== ENCOUNTER → 2023-12-31 | Outpatient (CLI) | payer MEDICARE, OTHER, SELFPAY ==
--- NOTE | 2023-12-31 13:57 | ECHOD_ITS ---
Reason For Study: CARDIOMYOPATHY Procedure This was a 2D Doppler, Color Flow transthoracic echocardiogram. Exam performed in department. Left Ventricle Normal LV size. Left ventricular systolic function is normal. The left ventricular ejection fraction is 50 %. Stage 1 diastolic dysfunction. No regional wall motion abnormalities noted. Right Ventricle Normal RV size. Normal systolic function. Atria Normal left atrium. Normal right atrium. Mitral Valve Normal mitral valve. Mild (1+) eccentric mitral valve insufficiency. Tricuspid Valve Normal tricuspid valve. Mild (1+) tricuspid valve insufficiency. Pulmonary artery systolic pressure is 35 mmHg. Aortic Valve Normal aortic valve. Pulmonic Valve Normal pulmonic valve. Great Vessels Normal aortic root. The pulmonary artery is normal size. Normal inferior vena cava. Pericardium/Pleural No pericardial effusion. MMode/2D Measurements & Calculations LVIDd: 5.5 cm IVSd: 1.0 cm Ao root diam: 3.1 cm LVIDs: 4.2 cm LVPWd: 1.1 cm RVDd: 3.3 cm FS: 24.9 % LAV(MOD-bp): 67.2 ml LVAd ap4: 33.8 cm2 LVAd ap2: 23.6 cm2 LAV(MOD-bp) Indexed: 36.3 ml/m2 LVLd ap4: 9.1 cm LVLd ap2: 7.6 cm LAV(MOD-sp2): 68.7 ml EDV(MOD-sp4): 105.6 ml EDV(MOD-sp2): 64.9 ml LAV(MOD-sp4): 61.6 ml EDV(sp4-el): 106.6 ml EDV(sp2-el): 62.1 ml LVAs ap4: 21.5 cm2 LVAs ap2: 15.1 cm2 LVLs ap4: 7.8 cm LVLs ap2: 6.3 cm ESV(MOD-sp4): 52.4 ml ESV(MOD-sp2): 32.2 ml ESV(sp4-el): 50.1 ml ESV(sp2-el): 30.6 ml EF(MOD-sp4): 50.4 % EF(MOD-sp2): 50.4 % EF(sp4-el): 53.0 % SV(MOD-sp4): 53.2 ml SV(MOD-sp2): 32.7 ml SV(sp4-el): 56.5 ml LA dimension(2D): 4.0 cm LA A4 area: 19.5 cm2 RA A4 area: 17.0 cm2 TAPSE: 2.2 cm Doppler Measurements & Calculations MV E max daniel: 38.9 cm/sec Lat Peak E' Daniel: 7.0 cm/sec Med Peak E' Daniel: 5.3 cm/sec MV A max daniel: 90.1 cm/sec E/E' lat: 5.5 E/E' med: 7.3 MV E/A: 0.43 Ao V2 max: 156.1 cm/sec LV V1 max: 93.7 cm/sec PA V2 max: 105.1 cm/sec Ao max P.8 mmHg LV V1 max P.5 mmHg PA V2 mean: 61.5 cm/sec Ao V2 mean: 113.6 cm/sec LV V1 mean P.0 mmHg Ao mean P.8 mmHg LV V1 mean: 65.3 cm/sec Ao V2 VTI: 31.5 cm LV V1 VTI: 18.4 cm AV (velocity ratio): 0.58 TR max daniel: 275.0 cm/sec TR max P.2 mmHg ECHO/Echo Complete Interpretation Summary Normal LV size. Left ventricular systolic function is normal. The left ventricular ejection fraction is 50 %. Stage 1 diastolic dysfunction. Mild (1+) eccentric mitral valve insufficiency. Pulmonary artery systolic pressure is 35 mmHg. Ordering Physician: Rene Mata Referring Physician: Lucia Caro Performed By: Gwen Servin, RDCS, RVT
== END | disposition home or self-care (01) ==
LOC: CVS 13:55
PROVIDERS: PCP Family Medicine; Referring Provider Internal Medicine Cardiovascular Disease; Visit Provider Internal Medicine Cardiovascular Disease
DX: I42.8 Other cardiomyopathies (principal); R06.02 Shortness of breath
CPT/HCPCS: 93306

== ENCOUNTER → 2024-03-13 | Outpatient (CLI) | payer MEDICARE, OTHER, SELFPAY ==
[2024-03-13 13:52] LABS: AST(SGOT) 21 U/L (15-37); Alanine Aminotransfer ALT/SGPT 21 U/L (13-56); Albumin, Serum 3.5 g/dL (3.2-5.0); Alkaline Phosphatase 69 U/L (45-117); Bilirubin, Direct 0.14 mg/dL (0.00-0.30); Cholesterol 192 mg/dL (200); Globulin 3.3 g/dL (2.2-4.2); High Density Lipoprotein 52 mg/dL; Protein, Total 6.8 g/dL (6.4-8.2); Triglycerides 198 mg/dL; Very Low Density Lipoprotein 40 mg/dL (5-40)
== END | disposition home or self-care (01) ==
LOC: LAB 11:26
PROVIDERS: PCP Family Medicine; Referring Provider Internal Medicine Cardiovascular Disease; Visit Provider Internal Medicine Cardiovascular Disease
DX: E78.5 Hyperlipidemia, unspecified (principal)
CPT/HCPCS: 36415; 80061; 80076

== ENCOUNTER → 2024-09-08 | Outpatient (CLI) | payer MEDICARE, OTHER, SELFPAY ==
[2024-09-08 11:42] LABS: AST(SGOT) 17 U/L (15-37); Alanine Aminotransfer ALT/SGPT 24 U/L (13-56); Albumin, Serum 3.5 g/dL (3.2-5.0); Alkaline Phosphatase 68 U/L (45-117); Bilirubin, Direct 0.13 mg/dL (0.00-0.30); Cholesterol 192 mg/dL (200); Globulin 3.2 g/dL (2.2-4.2); High Density Lipoprotein 53 mg/dL; Protein, Total 6.7 g/dL (6.4-8.2); Triglycerides 204 mg/dL; Very Low Density Lipoprotein 41 mg/dL (5-40)
== END | disposition home or self-care (01) ==
PROVIDERS: PCP Family Medicine; Referring Provider Nurse Practitioner Gerontology; Visit Provider Nurse Practitioner Gerontology
DX: E78.5 Hyperlipidemia, unspecified (principal)
CPT/HCPCS: 36415; 80061; 80076